=== PATIENT | male | born 1950 | race Caucasian/White ===

== ENCOUNTER 2017-08-16 14:38 | Emergency (ER) | payer OTHER ==
[2017-08-16 14:44] VITALS: BP 147/74; PULSE 99; RESP 20; TEMP 97.4; O2SAT 97
--- NOTE | 2017-08-16 15:43 | RADRPT ---
EXAM DATE/TIME: 08/16/2017 15:22 [place] COMPARISON: No previous studies available for comparison. INDICATIONS : Short of breath, cough. MEDICAL HISTORY : None. SURGICAL HISTORY : None. ENCOUNTER: Initial ACUITY: 2 days PAIN SCORE: 0/10 LOCATION: Bilateral chest FINDINGS: PA and lateral views of the chest. The lungs are clear. Cardiomediastinal silhouette within normal li mits. No evidence of pleural effusion or pneumothorax. CONCLUSION: No acute cardiopulmonary disease identified. . Micah Park MD on August 16, 2017 at 15:39 Board Certified Radiologist. This report was verified electronically.
--- NOTE | 2017-08-16 16:56 | PD ---
HPI Chief Complaint: Respiratory Symptoms Time Seen by Provider: 16:38 Travel History International Travel<30 days: No Contact w/Intl Traveler<30days: No Traveled to known affect area: No History of Present Illness HPI 67-year-old male presents to the emergency department for evaluation shortness of breath, cough. Patient states he has had a chronic cough for over a month. He states that yesterday evening he started feeling short of breath, like he cannot take a full deep breath. He denies any fevers or chills. No chest pain. No abdominal pain. No nausea, vomiting, diarrhea. Patient was seen at an urgent care center where a chest x-ray and EKG were performed. He was then referred to the emergency department. Patient has history of diabetes and liver disease. He denies any history of cardiac disease, CHF, COPD. He denies any exacerbating or alleviating factors. Moderate severity. Denies any pain at all this time. PFSH Past Medical History Cancer: No Diabetes: No Glaucoma: No Hepatitis: No Hiatal Hernia: No Hypertension: Yes Immunizations Current: No (PT NOT INTERESTED) Thyroid Disease: No Social History Alcohol Use: Yes (FORMER,QUIT IN JANUARY) Tobacco Use: No Substance Use: No Allergies-Medications (Allergen,Severity, Reaction): Coded Allergies: No Known Allergies (Verified Allergy, Severe, 12/19/03) Reported Meds & Prescriptions Reported Meds & Active Scripts Active Reported Furosemide 40 Mg Tab 40 Mg PO DAILY Carospir (Spironolactone) 25 Mg/5 Ml Oral.susp 25 Mg PO DAILY Propranolol (Propranolol HCl) 10 Mg Tab 10 Mg PO DAILY Metformin (Metformin HCl) 500 Mg Tab 500 Mg PO BIDPC Review of Systems Except as stated in HPI: all other systems reviewed are Neg Physical Exam Narrative GENERAL: Well-nourished, well-developed male patient, afebrile. SKIN: Focused skin assessment warm/dry. HEAD: Normocephalic. Atraumatic. EYES: No scleral icterus. No injection or drainage. NECK: Supple, trachea midline. No JVD or lymphadenopathy. CARDIOVASCULAR: Regular rate and rhythm without murmurs, gallops, or rubs. RESPIRATORY: Breath sounds equal bilaterally. No accessory muscle use. Lungs sounds are clear to auscultation. GASTROINTESTINAL: Abdomen soft, non-tender, nondistended. MUSCULOSKELETAL: No cyanosis, or edema. BACK: Nontender without obvious deformity. No CVA tenderness. Data Data Last Documented VS Vital Signs Date Time Temp Pulse Resp B/P (MAP) Pulse Ox O2 Delivery O2 Flow Rate FiO2 08/16/17 18:00 92 16 140/63 (88) 94 Room Air 08/16/17 14:44 97.4 Orders Orders Complete Blood Count With Diff (08/16/17 14:47) Comprehensive Metabolic Panel (08/16/17 14:47) B-Type Natriuretic Peptide (08/16/17 14:47) Act Partial Throm Time (Ptt) (08/16/17 14:47) Prothrombin Time / Inr (Pt) (08/16/17 14:47) Magnesium (Mg) (08/16/17 14:47) Ckmb (Isoenzyme) Profile (08/16/17 14:47) Troponin I (08/16/17 14:47) Electrocardiogram (08/16/17 14:47) Chest, Pa & Lat (08/16/17 14:47) Sodium Chlor 0.9% 1000 Ml Inj (Ns 1000 M (08/16/17 18:30) Labs Laboratory Tests Test 08/16/17 16:10 08/16/17 17:41 White Blood Count 14.6 TH/MM3 Red Blood Count 2.95 MIL/MM3 Hemoglobin 10.4 GM/DL Hematocrit 30.4 % Mean Corpuscular Volume 103.2 FL Mean Corpuscular Hemoglobin 35.4 PG Mean Corpuscular Hemoglobin Concent 34.3 % Red Cell Distribution Width 13.4 % Platelet Count 154 TH/MM3 Mean Platelet Volume 10.3 FL Neutrophils (%) (Auto) 78.5 % Lymphocytes (%) (Auto) 11.3 % Monocytes (%) (Auto) 9.5 % Eosinophils (%) (Auto) 0.3 % Basophils (%) (Auto) 0.4 % Neutrophils # (Auto) 11.5 TH/MM3 Lymphocytes # (Auto) 1.7 TH/MM3 Monocytes # (Auto) 1.4 TH/MM3 Eosinophils # (Auto) 0.0 TH/MM3 Basophils # (Auto) 0.1 TH/MM3 CBC Comment DIFF FINAL Differential Comment Blood Urea Nitrogen 50 MG/DL Creatinine 0.86 MG/DL Random Glucose 203 MG/DL Total Protein 6.3 GM/DL Albumin 3.1 GM/DL Calcium Level 9.0 MG/DL Magnesium Level 2.1 MG/DL Alkaline Phosphatase 77 U/L Aspartate Amino Transf (AST/SGOT) 25 U/L Alanine Aminotransferase (ALT/SGPT) 32 U/L Total Bilirubin 1.0 MG/DL Sodium Level 141 MEQ/L Potassium Level 4.2 MEQ/L Chloride Level 109 MEQ/L Carbon Dioxide Level 23.8 MEQ/L Anion Gap 8 MEQ/L Estimat Glomerular Filtration Rate 88 ML/MIN Total Creatine Kinase 74 U/L Troponin I LESS THAN 0.02 NG/ML B-Type Natriuretic Peptide 9 PG/ML Prothrombin Time 11.8 SEC Prothromb Time International Ratio 1.2 RATIO Activated Partial Thromboplast Time 22.6 SEC MDM Medical Decision Making Medical Screen Exam Complete: Yes Emergency Medical Condition: Yes Medical Record Reviewed: Yes Interpretation(s) Last Impressions Chest X-Ray 08/16/17 1447 Signed Impressions: Service Date/Time: Wednesday, August 16, 2017 15:22 - CONCLUSION: No acute cardiopulmonary disease identified. . Micah Park MD Differential Diagnosis URI versus CHF versus pneumonia Narrative Course 67-year-old male presents to the emergency department for evaluation of cough for 1 month as well as shortness of breath that started yesterday. He characterizes the shortness of breath is unable to take a complete breath. He does appear well on exam. EKG shows sinus rhythm, heart rate 93, no acute ST changes. CBC, BMP, CK, troponin, BNP, magnesium, PTT, PT/INR are ordered and pending. Chest x-ray is ordered and pending. CBC shows leukocytosis 14.6, anemia with a hemoglobin 10.4, hematocrit 30.4. BMP shows BUN 50, hyperglycemia 203. CK is 74. Troponin is less than 0.02. BNP is 9. Magnesium is 2.1. Coags show no acute abnormality. Chest x-ray shows no acute cardiopulmonary disease. Patient is given normal saline 1 L IV bolus for BUN of 50. Patient is ambulate in the emergency department. Oxygen saturation after ambulation is 100%. Upon reevaluation, patient states he feels much better and would like to go home. He denies any shortness of breath this time. Patient will be discharged to follow his primary care physician. He is return here for any acute worsening of symptoms. Diagnosis Primary Impression: Upper respiratory infection Qualified Codes: J06.9 - Acute upper respiratory infection, unspecified Referrals: Primary Care Physician 2 days Patient Instructions: General Instructions, Upper Respiratory Infection (ED) Additional Instructions: Follow-up with your primary care physician. Return to the emergency department for any acute worsening of symptoms. Med/Other Pt SpecificInfo: No Change to Meds Disposition: 01 DISCHARGE HOME Condition: Stable FerozJocelynn Aug 16, 2017 16:56
[2017-08-16 17:09] LABS: AUTOMATED NEUTROPHIL # 11.5 TH/MM3 (1.8-7.7); BASOPHIL # 0.1 TH/MM3 (0-0.2); BASOPHIL % 0.4 % (0.0-2.0); EOSINOPHIL % 0.3 % (0.0-4.0); HEMATOCRIT 30.4 % (39.0-51.0); HEMOGLOBIN 10.4 GM/DL (13.0-17.0); LYMPH % 11.3 % (9.0-44.0); LYMPHOCYTE # 1.7 TH/MM3 (1.0-4.8); MEAN CELL VOLUME 103.2 FL (80.0-100.0); MEAN CORPUSCULAR HEMOGLOBIN 35.4 PG (27.0-34.0); MEAN CORPUSCULAR HGB CONC 34.3 % (32.0-36.0); MEAN PLATELET VOLUME 10.3 FL (7.0-11.0); MONO % 9.5 % (0.0-8.0); MONOCYTE # 1.4 TH/MM3 (0-0.9); NEUT % 78.5 % (16.0-70.0); PLATELET COUNT 154 TH/MM3 (150-450); RED BLOOD COUNT 2.95 MIL/MM3 (4.50-5.90); RED CELL DISTRIBUTION WIDTH 13.4 % (11.6-17.2); WHITE BLOOD COUNT 14.6 TH/MM3 (4.0-11.0)
[2017-08-16] MEDS ORDERED: METF500T PO (17:10)
[2017-08-16] MEDS ORDERED: PROP10TA6 PO (17:10)
[2017-08-16] MEDS ORDERED: FURO40TA PO (17:10)
[2017-08-16] MEDS ORDERED: SPIR25OR PO (17:10)
[2017-08-16 17:19] LABS: ALBUMIN 3.1 GM/DL (3.4-5.0); ALT (GPT) 32 U/L (12-78); AST (GOT) 25 U/L (15-37); BICARBONATE 23.8 MEQ/L (21.0-32.0); BLOOD UREA NITROGEN 50 MG/DL (7-18); CHLORIDE 109 MEQ/L (98-107); CREATININE 0.86 MG/DL (0.60-1.30); GLOMERULAR FILTRATION RATE 88 ML/MIN (>89); GLUCOSE,RANDOM 203 MG/DL (74-106); MAGNESIUM 2.1 MG/DL (1.5-2.5); SODIUM (NA) 141 MEQ/L (136-145)
[2017-08-16 17:23] LABS: ALKALINE PHOSPHATASE 77 U/L (45-117); TOTAL PROTEIN 6.3 GM/DL (6.4-8.2); TROPONIN I LESS THAN 0.02 NG/ML (0.02-0.05)
[2017-08-16 18:00] VITALS: BP 140/63; PULSE 92; RESP 16; O2SAT 94
[2017-08-16] MEDS ORDERED: SODIUM CHLOR 0.9% 1000 ML INJ 1,000 ML IV ONE (18:30)
[2017-08-16 18:41] LABS: INTERNATIONAL NORMALIZED RATIO 1.2 RATIO; PROTHROMBIN TIME - PATIENT 11.8 SEC (9.8-11.6)
--- NOTE | 2017-08-17 09:16 | EKG ---
Date Performed: 08/16/2017 Time Performed: 15:47:24 PTAGE: 67 years EKG: Sinus rhythm LOW QRS VOLTAGE IN EXTREMITY LEADS POSSIBLE LATERAL MYOCARDIAL INFARCTION ABNORMAL ECG INTERPRETATIO N BASED ON A DEFAULT AGE OF 40 YEARS NO PREVIOUS TRACING DOCTOR: Misbah Akhtar Interpretating Date/Time 08/17/2017 09:14:59
== END 2017-08-16 19:14 | disposition home or self-care (01) ==
LOC: NEPC 14:38
DX: J06.9 Acute upper respiratory infection, unspecified (principal); E11.9 Type 2 diabetes mellitus without complications; I10 Essential (primary) hypertension; Z79.84 Long term (current) use of oral hypoglycemic drugs; Z79.899 Other long term (current) drug therapy
CPT/HCPCS: 71046; 80053; 82550; 83735; 83880; 84484; 85025; 85610; 85730; 93005; 99285; J7030

== ENCOUNTER 2018-03-15 06:34 | Observation (INO) ==
--- NOTE | 2018-03-15 07:22 | ED ---
HPI General Chief Complaint: Recheck/Abnormal Lab/Rx Stated Complaint: Sent by physician yesterday for transfusion Time Seen by Provider: 03/15/18 06:57 History of Present Illness HPI narrative: This is a 68-year-old male with history of Cirrhosis, anemia, who presents today at the request of his GI physician for transfusion. According to the patient he has been following his blood count and he had blood work done yesterday that showed a hemoglobin of 6. The patient does report that he has had increased swelling of his abdomen. He denies any chest pain, chest pressure. He denies any shortness of breath. He denies any blood in his stool. He states that they have been passing his stool however they have not been able to find the source of his anemia. He is currently taking an aspirin, iron, metformin, propranolol and spironolactone. The patient states his blood count/hemoglobin has been as low as in the fours. Related Data Home Medications Medication Instructions Recorded Confirmed aspirin 81 mg PO DAILY 03/15/18 03/15/18 ferrous sulfate [iron] 325 mg PO DAILY 03/15/18 03/15/18 metformin 1,000 mg PO DAILY 03/15/18 03/15/18 [id number] 1 tab PO DAILY 03/15/18 03/15/18 [Centrum Silver Men] propranolol 10 mg PO BID 03/15/18 03/15/18 spironolactone 500 mg PO DAILY 03/15/18 03/15/18 Allergies Allergy/AdvReac Type Severity Reaction Status Date / Time No Known Allergies Allergy Severe none Uncoded 03/15/18 07:14 Review of Systems ROS: all other systems reviewed are negative Constitutional Denies chills, Denies fatigue, Denies fever(s) and Reports other (Fluid retention.) Eyes Reports system reviewed and no additional complaints, except as docu ENT Reports system reviewed and no additional complaints, except as docu Cardiovascular Denies rapid heart rate, Reports pedal edema, Reports edema and Denies palpitations Respiratory Denies dyspnea and Denies wheezing Gastrointestinal Denies abdominal pain, Denies melena, Denies hematochezia, Denies change in bowel habits, Denies nausea and Denies vomiting Genitourinary Denies system reviewed and no additional complaints, except as docu and Denies hematuria Musculoskeletal Reports system reviewed and no additional complaints, except as docu Neurologic Reports system reviewed and no additional complaints, except as [facility] Medical History Medical History Cirrhosis (Acute) Diabetes 1.5, managed as type 2 (Acute) History of abdominal paracentesis (Acute) Social History Social History Substance History: No History of Abuse Smoking Status: Former smoker Tobacco Type: Cigarettes How Often Do You Have a Drink Containing Alcohol: Never Recent Travel in [facility] within the Last 8 Weeks: No Recent Out of Country Travel within the Last 8 Weeks: No Exam Narrative Exam Narrative: GENERAL: Well-developed well-nourished male in no acute respiratory distress. SKIN: Focused skin assessment warm/dry. HEAD: Atraumatic. Normocephalic. EYES: No scleral icterus. Pale conjunctiva. No injection or drainage. ENT: No nasal bleeding or discharge. Mucous membranes pink and pale.. NECK: Trachea midline. No JVD. Supple. CARDIOVASCULAR: Regular rate and rhythm, with a 3/6 flow murmur. RESPIRATORY: No accessory muscle use. Clear to auscultation. Breath sounds equal bilaterally. GASTROINTESTINAL: Abdomen soft, distended. Positive fluid wave. Exam consistent with ascites. MUSCULOSKELETAL: No obvious deformities. No clubbing. No cyanosis. No edema. NEUROLOGICAL: Awake and alert. No obvious cranial nerve deficits. Motor grossly within normal limits. Normal speech. Course Initial Documented Vital Signs Temperature 98.6 F 03/15/18 06:41 Pulse Rate 86 03/15/18 06:41 Respiratory Rate 18 03/15/18 06:41 Blood Pressure 128/69 03/15/18 06:41 Pulse Oximetry 100 03/15/18 06:41 Last Documented Vital Signs Temperature 98.6 F 03/15/18 06:41 Pulse Rate 85 03/15/18 07:19 Respiratory Rate 18 03/15/18 06:41 Blood Pressure 128/69 03/15/18 06:41 Pulse Oximetry 98 03/15/18 07:19 Medical Decision Making MDM Narrative Medical decision making narrative: 68-year-old male with history of cirrhosis, presents today with request to transfuse. Patient was seen by his GI physician' s office and was given lab slip for yesterday. He had labs done which showed evidence of anemia. They sent him here for transfusion. The patient denies any hematochezia, melena, nausea vomiting with blood or hematuria. He is refused rectal examination stating that they have checked his stool multiple times. Case was discussed with Joseph Serrano PA-C working with Dr. Harrington, [facility]. He will be placed under observation and transfused. He has been typed and crossed for 2 units of packed red blood cell. Medical Screen Exam Complete: Yes Emergency Medical Condition: Yes Differential Diagnosis Differential Diagnosis: Anemia of chronic inflammation versus symptomatic anemia versus metabolic derangement versus fluid retention Lab Data Result diagrams: 03/15/18 07:20 03/15/18 07:20 Lab Results 03/15/18 03/15/18 03/15/18 Range/Units 07:20 07:20 07:20 CBC w Diff Auto diff final WBC 6.0 (4.0-11.0) th/mm3 RBC 2.71 L (4.50-5.90) mil/mm3 Hgb 7.1 L (13.0-17.0) gm/dL Hct 22.8 L (39.0-51.0) % MCV 84.0 (80.0-100.0) fL MCH 26.1 L (27.0-34.0) pg MCHC 31.1 L (32.0-36.0) % RDW 20.8 H (11.6-17.2) % Plt Count 222 (150-450) th/mm3 MPV 9.7 (7.0-11.0) fL Neut % (Auto) 60.0 (16.0-70.0) % Lymph % (Auto) 17.7 (9.0-44.0) % Addison % (Auto) 16.5 H (0.0-8.0) % Eos % (Auto) 5.3 H (0.0-4.0) % Baso % (Auto) 0.5 (0.0-2.0) % Neut # (Auto) 3.6 (1.8-7.7) th/mm3 Lymph # (Auto) 1.1 (1.0-4.8) th/mm3 Addison # (Auto) 1.0 H (0.0-0.9) th/mm3 Eos # (Auto) 0.3 (0.0-0.4) th/mm3 Baso # (Auto) 0.0 (0.0-0.2) th/mm3 WBC Differential . Differential Comment . PT 11.5 (9.8-11.6) sec INR 1.1 Ratio APTT 25.1 (23.4-31.7) sec Sodium 138 (136-145) meq/L Potassium 3.9 (3.5-5.1) meq/L Chloride 108 H (98-107) meq/L Carbon Dioxide 23.1 (21.0-32.0) meq/L Anion Gap 7 (5-15) meq/L BUN 16 (7-18) mg/dL Creatinine 0.81 (0.60-1.30) mg/dL Estimated GFR Greater than 89 (>89) mL/min Random Glucose 151 H (74-106) mg/dL Calcium 7.6 L (8.5-10.1) mg/dL Total Bilirubin 0.6 (0.2-1.0) mg/dL AST 25 (15-37) U/L ALT 30 (12-78) U/L Alkaline Phosphatase 129 H (45-117) U/L Total Protein 6.5 (6.4-8.2) g/dL Albumin 2.7 L (3.4-5.0) g/dL MTS Gel Crossmatch 03/15/18 Range/Units 07:20 CBC w Diff WBC (4.0-11.0) th/mm3 RBC (4.50-5.90) mil/mm3 Hgb (13.0-17.0) gm/dL Hct (39.0-51.0) % MCV (80.0-100.0) fL MCH (27.0-34.0) pg MCHC (32.0-36.0) % RDW (11.6-17.2) % Plt Count (150-450) th/mm3 MPV (7.0-11.0) fL Neut % (Auto) (16.0-70.0) % Lymph % (Auto) (9.0-44.0) % Addison % (Auto) (0.0-8.0) % Eos % (Auto) (0.0-4.0) % Baso % (Auto) (0.0-2.0) % Neut # (Auto) (1.8-7.7) th/mm3 Lymph # (Auto) (1.0-4.8) th/mm3 Addison # (Auto) (0.0-0.9) th/mm3 Eos # (Auto) (0.0-0.4) th/mm3 Baso # (Auto) (0.0-0.2) th/mm3 WBC Differential Differential Comment PT (9.8-11.6) sec INR Ratio APTT (23.4-31.7) sec Sodium (136-145) meq/L Potassium (3.5-5.1) meq/L Chloride (98-107) meq/L Carbon Dioxide (21.0-32.0) meq/L Anion Gap (5-15) meq/L BUN (7-18) mg/dL Creatinine (0.60-1.30) mg/dL Estimated GFR (>89) mL/min Random Glucose (74-106) mg/dL Calcium (8.5-10.1) mg/dL Total Bilirubin (0.2-1.0) mg/dL AST (15-37) U/L ALT (12-78) U/L Alkaline Phosphatase (45-117) U/L Total Protein (6.4-8.2) g/dL Albumin (3.4-5.0) g/dL MTS Gel Crossmatch See Detail Discharge Plan Discharge Disposition Patient Disposition: 30 Still Patient Discharge Details Diagnosis: Anemia, Cirrhosis Physicians Team ED Provider: Tacos Fuller Primary Care Provider: UNKNOWN, Attending Provider: Miguelito Dimas Discharge Interventions Interventions: Vital Signs Last Done: 03/15/18 06:41 Status ED Status: Admitted Observation Patient
[2018-03-15 07:27] LABS: Baso % (Auto) 0.5 % (0.0-2.0); Eos # (Auto) 0.3 th/mm3 (0.0-0.4); Eos % (Auto) 5.3 % (0.0-4.0); Hematocrit 22.8 % (39.0-51.0); Hemoglobin 7.1 gm/dL (13.0-17.0); Lymph # (Auto) 1.1 th/mm3 (1.0-4.8); Lymph % (Auto) 17.7 % (9.0-44.0); Mean Corpuscular HGB Conc 31.1 % (32.0-36.0); Mean Corpuscular Hemoglobin 26.1 pg (27.0-34.0); Mean Platelet Volume 9.7 fL (7.0-11.0); Mono % (Auto) 16.5 % (0.0-8.0); Neut # (Auto) 3.6 th/mm3 (1.8-7.7); Platelet Count 222 th/mm3 (150-450); Red Blood Count 2.71 mil/mm3 (4.50-5.90); Red Cell Distribution Width 20.8 % (11.6-17.2)
[2018-03-15 07:35] LABS: Chloride 108 meq/L (98-107); Potassium 3.9 meq/L (3.5-5.1); Sodium 138 meq/L (136-145)
[2018-03-15 07:38] LABS: Calcium 7.6 mg/dL (8.5-10.1)
[2018-03-15 07:39] LABS: Activated Partial Thrombo Time 25.1 sec (23.4-31.7); Albumin 2.7 g/dL (3.4-5.0); Anion Gap 7 meq/L (5-15); Blood Urea Nitrogen 16 mg/dL (7-18); Carbon Dioxide 23.1 meq/L (21.0-32.0); Glucose,Random 151 mg/dL (74-106); INR 1.1 Ratio; Prothrombin Time 11.5 sec (9.8-11.6)
[2018-03-15 07:42] LABS: Alanine Aminotransferase 30 U/L (12-78); Aspartate Aminotransferase 25 U/L (15-37); Glomerular Filtration Rate Greater Than 89 mL/min (>89)
[2018-03-15 07:44] LABS: Total Protein 6.5 g/dL (6.4-8.2)
[2018-03-15 07:45] LABS: Alkaline Phosphatase 129 U/L (45-117)
[2018-03-15] MEDS ORDERED: Bisacodyl 10 MG Supp RECTAL PRN (08:45)
[2018-03-15] MEDS ORDERED: Acetaminophen 325 MG Tablet PO PRN (08:45)
[2018-03-15] MEDS ORDERED: Sodium Chlor 0.9% Inj 250 ML IV.SIG SCH (09:00)
[2018-03-15] MEDS ORDERED: Senna/Docusate Sodium 8.6/50 MG Tablet PO SCH (09:00)
[2018-03-15] MEDS: Acetaminophen 325 MG Tablet PO PRN ×2 (10:49→14:49)
--- NOTE | 2018-03-15 11:33 | P.HP ---
History of Present Illness Primary Care Physician: UNKNOWN Chief Complaint: Sent here by GI physician for transfusion History of Present Illness: 68-year-old male with known history of cirrhosis, diabetes, anemia who presented to the hospital at the request of his budget manager to have a transfusion. Patient is undergoing outpatient workup with their GI physician and was told that he had a hemoglobin of 6.8 yesterday and was told to go to emergency department for transfusion. Patient decided to wait till today to come in for evaluation. Upon initial workup in the emergency department patient was found to have a hemoglobin of 7.1. Patient states that he has never had to go to the hospital for transfusion before. He is undergoing outpatient workup and has plans for endoscopy by his budget manager in the outpatient setting. Patient denies any other symptoms to include lightheadedness, dizziness, shortness of breath, chest pain, abdominal pain, diarrhea, constipation. - Diagnosis (1) Anemia Review of Systems All other systems reviewed negative except as stated in HPI PMFSH - History History Provided By: Patient - Medical History Medical History: Medical History (Last Reviewed 03/15/18 @ 11:07 by LISSETH Valentino) Cirrhosis Diabetes 1.5, managed as type 2 - Surgical History Surgical History: Surgical History (Last Reviewed 03/15/18 @ 11:08 by LISSETH Valentino) History of abdominal paracentesis - Family History Family History: Family History (Last Reviewed 03/15/18 @ 11:08 by LISSETH Valentino) Other No pertinent family history - Tobacco History Second Hand Smoke Exposure: No Smoking Status: Never smoker Tobacco Type: Cigarettes - Alcohol History How Often Do You Have a Drink Containing Alcohol: Never - Substance Use History Substance History: No History of Abuse - Travel History Recent Travel in the [place] Within the Last 8 Weeks: No Recent Travel Out of the Country Within the Last 8 Weeks: No - Immunization History Tetanus Immunization: Unsure Medications and Allergies Active Medications: Active Medications Acetaminophen (Tylenol) 650 mg PO Q4H PRN PRN Reason: Temp > 100.4 Acetaminophen (Tylenol) 650 mg PO Q4H PRN PRN Reason: SEE LABEL COMMENTS Last Admin: 03/15/18 10:49 Dose: 650 mg Al Hydroxide/Mg Hydroxide (Milk Of Magnesia Liq) 30 ml PO Q12H PRN PRN Reason: Mild Constipation Aspirin (Ecotrin) 81 mg PO DAILY [facility] Bisacodyl (Dulcolax Supp) 10 mg RECTAL DAILY PRN PRN Reason: SEVERE CONSITIPATION Diphenhydramine HCl (Benadryl) 25 mg PO Q4H PRN PRN Reason: SEE LABEL COMMENTS Last Admin: 03/15/18 10:49 Dose: 25 mg Ferrous Sulfate (Ferosul) 325 mg PO DAILY [facility] Sodium Chloride (Ns Inj) 250 mls @ 15 mls/hr IV.SIG ONCE BENNIE Stop: 03/16/18 01:39 Lactulose (Lactulose Liq) 30 ml PO DAILY PRN PRN Reason: SEVERE CONSITIPATION Non-Formulary Medication (Metformin [Metformin]) 1,000 mg PO DAILY [facility] Ondansetron HCl (Zofran Inj) 4 mg IV.PUSH Q6H PRN PRN Reason: NAUSEA OR VOMITING Propranolol HCl (Inderal) 10 mg PO BID [facility] Senna/Docusate Sodium (Mariaelena-Colace) 1 tab PO BID [facility] Last Admin: 03/15/18 10:50 Dose: Not Given Sennosides (Senokot) 17.2 mg PO Q12H PRN PRN Reason: Moderate Constipation Sodium Chloride (Ns Flush) 2 ml IV.FLUSH PRN PRN PRN Reason: FLUSH AFTER USING IV ACCESS Spironolactone (Aldactone) 500 mg PO DAILY [facility] Allergies Allergy/AdvReac Type Severity Reaction Status Date / Time No Known Allergies Allergy Severe none Uncoded 03/15/18 07:14 Home Medications Medication Instructions Recorded Confirmed Type aspirin 81 mg PO DAILY 03/15/18 03/15/18 History ferrous sulfate [iron] 325 mg PO DAILY 03/15/18 03/15/18 History metformin 1,000 mg PO DAILY 03/15/18 03/15/18 History vmcuutab-tfg-RH-lycopen-lutein 1 tab PO DAILY 03/15/18 03/15/18 History [Centrum Silver Men] propranolol 10 mg PO BID 03/15/18 03/15/18 History spironolactone 500 mg PO DAILY 03/15/18 03/15/18 History Exam Vital signs: Vital Signs 03/15/18 06:41 03/15/18 07:19 03/15/18 08:50 Temperature 98.6 F Pulse Rate 86 85 72 Respiratory Rate 18 17 Blood Pressure 128/69 128/65 Pulse Oximetry 100 98 03/15/18 09:24 03/15/18 11:13 Temperature 96.5 F L Pulse Rate 79 72 Respiratory Rate 17 18 Blood Pressure 122/66 110/62 Pulse Oximetry 98 Intake & Output 03/14/18 03/15/18 03/15/18 18:59 06:59 18:59 Intake Total 0 / 0 Balance 0 / 0 Weight 91.2 kg 91.2 kg Intake: Intake (Blood Product) Amt 0 / 0 Rbc As-3 Leukoreduced Unit 0 / 0 [id number] Other: Weight On Admission 172.2 kg Narrative: GENERAL: Well-developed, well-nourished, in no acute distress. alert and orientated HEENT: Head is normocephalic without any lesions or masses noted. Facial features are symmetric. Eyes: Pupils equal round reactive to light. Extraocular muscles are intact. Conjunctivae were clear. Oropharyngeal: Pharynx without any erythema edema. Tongue is midline without deviation. Buccal mucosa is moist without any masses or lesions NECK: Supple without any masses. Trachea midline no deviation. No JVD, no bruits are appreciated CARDIAC: Regular rhythm, regular rate. S1/S2 are heard. No murmurs gallops or rubs. LUNGS: Clear to auscultation bilaterally. No wheeze, rhonchi or rales. No use of accessory muscles on inspiration or expiration. ABDOMEN: Soft, nontender. Nondistended. Bowel sounds heard in all 4 quadrants. No organomegaly or masses. Negative rebound, negative guarding EXTREMITIES: No edema, pulses are equal bilaterally. No cyanosis or clubbing NEUROLOGY: Mood and affect appear appropriate. Cranial nerves II through XII grossly intact. Muscle strength 5/5 in upper and lower extremities bilaterally. Deep tendon reflexes are 2+ in upper and lower extremities bilaterally. Results - Labs CBC & Chem 7: 03/15/18 07:20 03/15/18 07:20 Labs: Laboratory Results - last 24 hr 03/15/18 03/15/18 03/15/18 07:20 07:20 07:20 CBC w Diff Auto diff final WBC 6.0 RBC 2.71 L Hgb 7.1 L Hct 22.8 L MCV 84.0 MCH 26.1 L MCHC 31.1 L RDW 20.8 H Plt Count 222 MPV 9.7 Neut % (Auto) 60.0 Lymph % (Auto) 17.7 Alexander % (Auto) 16.5 H Eos % (Auto) 5.3 H Baso % (Auto) 0.5 Neut # (Auto) 3.6 Lymph # (Auto) 1.1 Alexander # (Auto) 1.0 H Eos # (Auto) 0.3 Baso # (Auto) 0.0 WBC Differential . Differential Comment . PT 11.5 INR 1.1 APTT 25.1 Sodium 138 Potassium 3.9 Chloride 108 H Carbon Dioxide 23.1 Anion Gap 7 BUN 16 Creatinine 0.81 Estimated GFR Greater than 89 Random Glucose 151 H Calcium 7.6 L Total Bilirubin 0.6 AST 25 ALT 30 Alkaline Phosphatase 129 H Total Protein 6.5 Albumin 2.7 L Blood Type Antibody Screen MTS Gel Crossmatch 03/15/18 07:20 CBC w Diff WBC RBC Hgb Hct MCV MCH MCHC RDW Plt Count MPV Neut % (Auto) Lymph % (Auto) Alexander % (Auto) Eos % (Auto) Baso % (Auto) Neut # (Auto) Lymph # (Auto) Alexander # (Auto) Eos # (Auto) Baso # (Auto) WBC Differential Differential Comment PT INR APTT Sodium Potassium Chloride Carbon Dioxide Anion Gap BUN Creatinine Estimated GFR Random Glucose Calcium Total Bilirubin AST ALT Alkaline Phosphatase Total Protein Albumin Blood Type A Positive Antibody Screen Negative MTS Gel Crossmatch See Detail Caprini VTE Risk Assessment Caprini VTE Risk Assessment: Moderate/High Risk (score >= 2) Caprini Risk Assessment Model: Point Value = 1 Point Value = 2 Point Value = 3 Point Value = 5 Age 41-60 Minor surgery BMI > 25 kg/m2 Swollen legs Varicose veins or History of unexplained or recurrent spontaneous Oral contraceptives or hormone replacement Sepsis (< 1 month) Serious lung disease, including pneumonia (< 1 month) Abnormal pulmonary function Acute myocardial infarction Congestive heart failure (< 1 month) History of inflammatory bowel disease Medical patient at bed rest Age 61-74 Arthroscopic surgery Major open surgery (> 45 min) Laparoscopic surgery (> 45 min) Malignancy Confined to bed (> 72 hours) Immobilizing plaster cast Central venous access Age >= 75 History of VTE Family history of VTE Factor V Leiden Prothrombin [id number] Lupus anticoagulant Anticardiolipin antibodies Elevated serum homocysteine Heparin-induced thrombocytopenia Other congenital or acquired thrombophilia Stroke (< 1 month) Elective arthroplasty Hip, pelvis, or leg fracture Acute spinal cord injury (< 1 month) Prophylaxis Regimen: Total Risk Factor Score Risk Level Prophylaxis Regimen 0-1 Low Early ambulation 2 Moderate Order ONE of the following: *Sequential Compression Device (SCD) *Heparin 5000 units SQ BID 3-4 Higher Order ONE of the following medications: *Heparin 5000 units SQ TID *Enoxaparin/Lovenox 40 mg SQ daily (WT < 150 kg, CrCl > 30 mL/min) *Enoxaparin/Lovenox 30 mg SQ daily (WT < 150 kg, CrCl > 10-29 mL/min) *Enoxaparin/Lovenox 30 mg SQ BID (WT < 150 kg, CrCl > 30 mL/min) AND/OR *Sequential Compression Device (SCD) 5 or more Highest Order ONE of the following medications: *Heparin 5000 units SQ TID (Preferred with Epidurals) *Enoxaparin/Lovenox 40 mg SQ daily (WT < 150 kg, CrCl > 30 mL/min) *Enoxaparin/Lovenox 30 mg SQ daily (WT < 150 kg, CrCl > 10-29 mL/min) *Enoxaparin/Lovenox 30 mg SQ BID (WT < 150 kg, CrCl > 30 mL/min) AND *Sequential Compression Device (SCD) Assessment and Plan - Assessment (1) Anemia Code(s): D64.9 - Anemia, unspecified Status: Acute - Plan Anemia, unknown etiology -Patient is undergoing outpatient workup, plans for outpatient endoscopy by gastroenterology -Patient was sent here by his budget manager for transfusion -Patient does not want to have any workup done during this hospitalization, patient deferred rectal exam in the emergency department -We will plan transfusion 2 units packed red blood cells Cirrhosis -Home medication was continued DVT prevention -Sequential compression devices Discharge Planning: Discharge home in stable condition Activity: Ad madison. Diet: Regular diet Medication per medication reconciliation Follow-up with primary medical doctor in 1 week (1) Anemia Qualifiers: Anemia type: iron deficiency Iron deficiency anemia type: chronic blood loss Qualified Code(s): D50.0 - Iron deficiency anemia secondary to blood loss ( chronic)
[2018-03-15 15:03] VITALS: RESP 18
[2018-03-15 18:12] VITALS: BP 132/78; PULSE 78; TEMP 98.6; O2SAT 99
[2018-03-15] MEDS ORDERED: Propranolol 10 MG Tablet PO SCH (21:00)
[2018-03-16] MEDS ORDERED: Ferrous Sulfate 325 MG Tablet PO SCH (09:00)
== END 2018-03-15 18:35 | disposition home or self-care (01) ==
LOC: PHEDA 06:34 → PHED 06:34 → PHEDA 09:27 → PH3 09:32
PROVIDERS: ADMIT Hospitalist; ATTEND Hospitalist